=== PATIENT | male | born 1975 | race Two or more races ===

== ENCOUNTER 2016-09-25 14:09 | Emergency (ER) | payer BC ==
[~2016-09-25] VITALS: Ht 170.2 cm; Wt 90.7 kg
[2016-09-25 14:15] VITALS: BP 141/89
[2016-09-25] MEDS ORDERED: IBUPROFEN 600 MG TABLET. PO ONE (14:45)
[2016-09-25] MEDS ORDERED: PRED-220 PO (14:54)
[2016-09-25] MEDS ORDERED: EYE15DRO EACHEYE (14:54)
--- NOTE | 2016-09-25 14:54 | PHYS DOC ---
Past Medical History Past Medical History: No Pertinent History Past Surgical History: Other Additional Past Surgical Histo: R HAND SURGERY Alcohol Use: Occasionally Drug Use: None Adult General Chief Complaint Chief Complaint: NEURO SYMPTOMS/DEFICITS HPI HPI Patient is a 41 year old male who presents with facial droop. Patient reports at 0900 this morning he noticed when he was in the mirror that his left face was droopy. Having trouble closing his left eye, has left-sided facial numbness. On the way here experienced gradual onset of aching frontal headache, not the worst headache of his life, not sudden in onset. Denies speech changes, extremity numbness or weakness, chest pain, shortness of breath. Denies fevers or chills, neck stiffness, vision changes. No history of previous similar symptoms. Previously healthy, denies use of tobacco or street drugs, occasional alcohol use on the weekends. Doesn't have a primary care doctor. Review of Systems Review of Systems Constitutional: Denies fever or chills Eyes: Denies change in visual acuity HENT: Denies nasal congestion or sore throat Respiratory: Denies cough or shortness of breath Cardiovascular: Denies chest pain or edema GI: Denies abdominal pain, nausea, vomiting Musculoskeletal: Denies back pain or joint pain Integument: Denies rash or skin lesions Neurologic: Reports headache and facial droop, denies extremity numbness or weakness Current Medications Current Medications Current Medications Medications (Trade) Dose Ordered Sig/Sonia Start Time Stop Time Status Last Admin Dose Admin Ibuprofen (Motrin) 600 mg 1X ONCE 09/25/16 14:45 09/25/16 14:46 DC 09/25/16 14:45 600 MG Allergies Allergies Allergies Coded Allergies Type Severity Reaction Last Updated Verified No Known Drug Allergies 09/25/16 No Physical Exam Physical Exam Constitutional: Obese, no acute distress, non-toxic appearance. HENT: Normocephalic, atraumatic, bilateral external ears normal, TMs clear bilaterally, no vesicular lesions, oropharynx moist, nose normal. left facial droop, forehead involvement present Eyes: PERRLA, EOMI, conjunctiva normal, no discharge. Neck: supple, no stridor. no meningismus Cardiovascular: RRR, no murmurs, no edema. Lungs & Thorax: LCTAB, no wheezing, no respiratory distress. Abdomen: soft, nontender, nondistended. Skin: Warm, dry, no erythema, no rash. No facial vesicular lesions Extremities: No tenderness, no edema. Neurologic: Alert and oriented X 3, left facial droop as above otherwise CN2-12 grossly intact, symmetric strength/sensation to UE & LE, intact finger to nose, intact heel to mccarty Psychologic: Affect normal, judgement normal, mood normal. Current Patient Data Vital Signs Vital Signs Date Time Temp Pulse Resp B/P Pulse Ox O2 Delivery O2 Flow Rate FiO2 09/25/16 15:00 68 20 118/78 95 Room Air 09/25/16 14:15 98.1 98.1 EKG EKG [] Radiology/Procedures Radiology/Procedures [] Course & Med Decision Making Course & Med Decision Making Pertinent Labs and Imaging studies reviewed. (See chart for details) Patient presents with facial droop consistent with Mo's palsy. Forehead is involved. Has mild headache. No other neurologic deficits. Gave prescription for prednisone taper as well as eye lubrication, recommend eye patching taping at night to prevent dryness. Follow-up with Dr. Monique in primary care clinic in 2 -3 days, provided with referral. Return to the emergency department for worst headache of his life, extremity numbness or weakness, slurred speech, any otherwise worsening condition. Discharged home in stable condition [] Dragon Disclaimer Dragon Disclaimer This electronic medical record was generated, in whole or in part, using a voice recognition dictation system. Departure Departure Impression: Primary Impression: Mo's palsy Disposition: 01 HOME, SELF-CARE Condition: STABLE Referrals: NO PCP (PCP) JOSE MONIQUE MD Patient Instructions: Mo's Palsy Additional Instructions: You were seen in the emergency department today for facial droop which is caused by a Mo's palsy. Please take prescribed medication to help symptoms resolved. Use eye drops frequently during the daytime and consider using tape or eye patch to help keep your eye closed at night. This is expected to resolve completely. Please follow-up with Dr. Monique within one week and the primary care clinic. Return to the emergency department for worst headache of your life, slurred speech, numbness or weakness in her arms or legs, any otherwise worsening condition. Scripts Eye Lubricant Combination No.1 (Freshkote)15 Ml Drops1 Drop EACHEYE QID PRN dry eye #15 ML Ref 0 Prov:ARCHIE CHISHOLM MD 09/25/16 Prednisone 10 Mg [id number] Mg PO UD PREDNISONE TAPER #45 TAB Ref 0 Take 6 tablets by mouth daily for 5 days, then take 5 tablets by mouth daily for 1 day, then take 4 tablets by mouth daily for 1 day, then take 3 tablets by mouth daily for 1 day, then take 2 tablets by mouth daily for 1 day, then take 1 tablet by mouth daily, then stop. Prov:ARCHIE CHISHOLM MD 09/25/16 ARCHIE CHISHOLM MD Sep 25, 2016 14:54
== END 2016-09-25 15:01 | disposition home or self-care (01) ==
LOC: ER 14:09
DX: G51.0 Bell's palsy (principal)
CPT/HCPCS: 99283

== ENCOUNTER 2019-11-18 08:31 | Emergency (ER) | payer SELFPAY ==
[~2019-11-18] VITALS: Ht 177.8 cm; Wt 95.5 kg
[~2019-11-18 08:31] MED LIST: EYE15DRO EACHEYE; PRED-220 PO
[2019-11-18 08:33] VITALS: BP 128/60
[2019-11-18] MEDS ORDERED: LIDOCAINE 1% Multi-Dose 20 ML VIAL. INJ ONE (09:00)
[2019-11-18] MEDS ORDERED: TETANUS AND DIPHTHERIA TOX/PF 0.5 ML DISP.SYRIN. VAX IM ONE (09:00)
--- NOTE | 2019-11-18 09:08 | PHYS DOC ---
Past Medical History Past Medical History: No Pertinent History Past Surgical History: Other Additional Past Surgical Histo: R HAND SURGERY Smoking Status: Never Smoker Alcohol Use: Occasionally Drug Use: None General Adult EDM: Chief Complaint: LACERATION/AVULSION HPI: HPI: Patient is a 44-year-old male who presents with a laceration to the dorsal aspect of his left hand. He states he was using a osvaldo hob grinder this morning it slipped went through his glove and into his left hand. He states he is able to move all of his fingers. He is unsure when his last tetanus shot was. He states there is not any significant pain at this time. [] Review of Systems: Review of Systems: Constitutional: Denies fever or chills. [] Eyes: Denies change in visual acuity. [] HENT: Denies nasal congestion or sore throat. [] Respiratory: Denies cough or shortness of breath. [] Cardiovascular: Denies chest pain or edema. [] GI: Denies abdominal pain, nausea, vomiting, bloody stools or diarrhea. [] : Denies dysuria. [] Musculoskeletal: Denies back pain or joint pain. [] Integument: Per HPI [] Neurologic: Denies headache, focal weakness or sensory changes. [] Endocrine: Denies polyuria or polydipsia. [] Lymphatic: Denies swollen glands. [] Psychiatric: Denies depression or anxiety. [] Heart Score: Risk Factors: Risk Factors: DM, Current or recent (<one month) smoker, HTN, HLP, family history of CAD, obesity. Risk Scores: Score 0 - 3: 2.5% MACE over next 6 weeks - Discharge Home Score 4 - 6: 20.3% MACE over next 6 weeks - Admit for Clinical Observation Score 7 - 10: 72.7% MACE over next 6 weeks - Early Invasive Strategies Current Medications: Current Medications Medications (Trade) Dose Ordered Sig/Sonia Start Time Stop Time Status Last Admin Dose Admin Lidocaine HCl (Lidocaine 1% 20ml Vial) 20 ml 1X ONCE 11/18/19 09:00 11/18/19 09:01 DC Tetanus/ Diphtheria Toxoids (Tenivac Syringe) 0.5 ml ONCE ONCE 11/18/19 09:00 11/18/19 09:01 DC Allergies: Allergies: Allergies Coded Allergies Type Severity Reaction Last Updated Verified No Known Drug Allergies 09/25/16 No Physical Exam: PE: Constitutional: Well developed, well nourished, mild distress, non-toxic appearance. [] Cardiovascular:Heart rate regular rhythm, no murmur [] Lungs & Thorax: Bilateral breath sounds clear to auscultation [] Abdomen: Bowel sounds normal, soft, no tenderness, no masses, no pulsatile masses. [] Skin: There is a 5 cm laceration through the subcutaneous tissue the dorsum of the left hand. Patient was able to extend all of his fingers against pressure without difficulty [] Back: No tenderness, no CVA tenderness. [] Extremities:, No tendon damage based on evaluation described above. [] Neurologic: Alert and oriented X 3, normal motor function, normal sensory function, no focal deficits noted. [] Psychologic: Affect normal, judgement normal, mood normal. [] Current Patient Data: Vital Signs: Vital Signs Date Time Temp Pulse Resp B/P (MAP) Pulse Ox O2 Delivery O2 Flow Rate FiO2 11/18/19 08:33 97.8 63 16 128/60 (82) 99 Room Air 97.8 EKG: EKG: [] Radiology/Procedures: Radiology/Procedures: [] Course & Med Decision Making: Course & Med Decision Making Pertinent Labs and Imaging studies reviewed. (See chart for details) [Procedure: Laceration repair The wound was anesthetized with 8 cc of 1% lidocaine it was scrubbed with Hibicl ens then inspected in a bloodless field for foreign body none of which were found. Then using five 3-0 Ethilon simple interrupted sutures the wound edges were approximated nicely. Patient tolerated the procedure well.] Dragon Disclaimer: Dragon Disclaimer: This electronic medical record was generated, in whole or in part, using a voice recognition dictation system. Departure Departure Impression: Primary Impression: Laceration of left hand Qualified Codes: S61.412A - Laceration without foreign body of left hand, initial encounter Disposition: 01 HOME, SELF-CARE Condition: IMPROVED Referrals: NO PCP (PCP) Patient Instructions: Laceration Care, Adult Additional Instructions: Sutures need to be removed in 7 to 10 days. Keep the area clean and dry. Use Neosporin twice daily on the wound. DANIEL ALBARRAN DO November 18, 2019 09:08
== END 2019-11-18 09:20 | disposition home or self-care (01) ==
LOC: ER 08:31
DX: S61.412A Laceration without foreign body of left hand, initial encounter (principal); Z98.890 Other specified postprocedural states; W01.0XXA Fall on same level from slipping, tripping and stumbling without subsequent striking against object, initial encounter; Y93.89 Activity, other specified; Y92.89 Other specified places as the place of occurrence of the external cause; Y99.8 Other external cause status
CPT/HCPCS: 12002; 99282; J3490

== ENCOUNTER 2019-11-28 18:54 | Emergency (ER) | payer SELFPAY ==
--- NOTE | 2019-11-28 19:36 | PHYS DOC ---
Past Medical History Past Medical History: No Pertinent History Past Surgical History: Other Additional Past Surgical Histo: R HAND SURGERY Smoking Status: Never Smoker Alcohol Use: Occasionally Drug Use: None General Adult EDM: Chief Complaint: SUTURE/STAPLE REMOVAL HPI: HPI: Patient is a 44 year old male who presents to the ED today with left hand suture removal. Patient reports sutures have been in place for 10 days. Denies any issues with the wound healing. Review of Systems: Review of Systems: Constitutional: Denies fever or chills. [] Integument: Reports left hand laceration Neurologic: Denies headache, focal weakness or sensory changes. [] Psychiatric: Denies depression or anxiety. [] Heart Score: Risk Factors: Risk Factors: DM, Current or recent (<one month) smoker, HTN, HLP, family history of CAD, obesity. Risk Scores: Score 0 - 3: 2.5% MACE over next 6 weeks - Discharge Home Score 4 - 6: 20.3% MACE over next 6 weeks - Admit for Clinical Observation Score 7 - 10: 72.7% MACE over next 6 weeks - Early Invasive Strategies Allergies: Allergies: Allergies Coded Allergies Type Severity Reaction Last Updated Verified No Known Drug Allergies 09/25/16 No Physical Exam: PE: Constitutional: Well developed, well nourished, no acute distress, non-toxic appearance. [] Skin: Warm, dry, left dorsal hand with a laceration with approximately 5 interrupted sutures. Laceration site is well approximated, no signs of infection. Back: No tenderness, no CVA tenderness. [] Extremities: No tenderness, no cyanosis, no clubbing, ROM intact, no edema. [] Neurologic: Alert and oriented X 3, normal motor function, normal sensory function, no focal deficits noted. [] Psychologic: Affect normal, judgement normal, mood normal. [] Current Patient Data: Vital Signs: Vital Signs Date Time Temp Pulse Resp B/P (MAP) Pulse Ox O2 Delivery O2 Flow Rate FiO2 11/28/19 19:08 98.3 77 16 127/72 (90) 96 Room Air 98.3 EKG: EKG: [] Radiology/Procedures: Radiology/Procedures: [] Course & Med Decision Making: Course & Med Decision Making Pertinent Labs and Imaging studies reviewed. (See chart for details) This is a 44-year-old male patient presenting to the ED today for suture removal from the left hand, sutures were removed by me. Laceration site is well approximated, no signs of infection. Steri-Strips applied over the laceration site. Discharge to home. Adrián Disclaimer: Adrián Disclaimer: This electronic medical record was generated, in whole or in part, using a voice recognition dictation system. Departure Departure Impression: Primary Impression: Visit for suture removal Disposition: HOME, SELF-CARE Condition: STABLE Referrals: NO PCP (PCP) follow up with your doctor as needed. Patient Instructions: Suture Removal-Brief Additional Instructions: You have stitches that were removed from your left hand. Keep the area clean and dry. Follow-up with your doctor in 1 to 2 weeks. The Steri-Strips will fall off on their own. XOCHITL CONLEY JOB TRACER Nov 28, 2019 19:36
[2019-11-28 19:44] VITALS: BP 129/74
== END 2019-11-28 19:44 | disposition home or self-care (01) ==
LOC: ER 18:54
DX: S61.412D Laceration without foreign body of left hand, subsequent encounter (principal); X58.XXXD Exposure to other specified factors, subsequent encounter
CPT/HCPCS: 99282